=== PATIENT | female | born 1950 | race Two or more races ===

== ENCOUNTER 2025-02-27 15:05 | Emergency (ER) | payer OTHER ==
[~2025-02-27] VITALS: Ht 160 cm; Wt 97.6 kg
[2025-02-27 15:06] VITALS: TEMP 98
--- NOTE | 2025-02-27 16:04 | DVH ---
CLINICAL INDICATION: Cervical radiculopathy TECHNIQUE: 3 radiographic views of the cervical spine were obtained. Comparison: None FINDINGS/IMPRESSION: 7 [id number] cervical type vertebra. Straightening of the cervical lordosis. Vertebral body hei ghts are maintained. No evidence for acute traumatic fractures or spondylolisthesis. Moderate degener ative changes at C5-C6. Otherwise, mild multilevel degenerative changes of the cervical spine. The p revertebral soft tissues unremarkable. Visualized lung apices are clear. If symptoms persist, consider MRI for further evaluation
[2025-02-27 16:07] LABS: Hematocrit 40.0 % (36.0-46.0); Hemoglobin 13.5 g/dL (12.2-16.2); Mean Corpuscular Hemoglobin 28.5 pg (28.0-32.0); Mean Corpuscular Volume 84.4 fL (80.0-100.0); Nucleated Red Blood Cells % 0.1 %
[2025-02-27 16:13] LABS: Chloride 105 mmol/L (98-107); Potassium 4.0 mmol/L (3.5-5.1); Sodium 142 mmol/L (136-145)
[2025-02-27 16:14] LABS: Anion Gap 10 (5-15); Calcium 9.5 mg/dL (8.7-10.4); Carbon Dioxide 27 mmol/L (20-31)
--- NOTE | 2025-02-27 16:15 | DVH ---
Procedure: CT HEAD WITHOUT CONTRAST Study Date and Requested Time: 02/27/2025 03:36 PM History: Weakness Comparison: None Dose: CTDI: 50.46 mGy DLP: 809.0 mGycm Technique: Multiplanar images obtained through the brain without intravenous contrast. Findings: Diffuse brain atrophy. Mild chronic small vessel ischemic changes. No hemorrhages, masses, mass effect, midline shift, herniation or cytotoxic edema following a large v ascular territory. No intra-axial or extra-axial fluid collections. No evidence of hydrocephalus. The basal cisterns are patent. 0.6 cm left caudate head Suggested area of chronic lacunar infarct. The pituitary gland, sella and parasellar regions are unremarkable. The cerebellar tonsils are in nor mal position. Right inferior cerebellar chronic infarct. The cerebellum is unremarkable. Bilateral lens replacement. Otherwise, orbits and globes are unremarkable. The paranasal sinuses and mastoids are clear. There are no worrisome calvarial lesions. Impression: No evidence of acute intracranial abnormality. If symptoms persist, consider MRI for further evaluati on. Right inferior cerebellum and left caudate head suggested areas of chronic infarct.
[2025-02-27 16:19] LABS: BUN/Creatinine Ratio 19.6 (10.0-20.0); Blood Urea Nitrogen 21 mg/dL (9-23); Glucose 96 mg/dL (74-106); Lipase 44 U/L (12-53)
--- NOTE | 2025-02-27 16:21 | ED.PDOC ---
History of Present Illness HPI Comments Patient is a morbidly obese 74-year-old female who presents to the ER with right sided weakness. Patient reports on having three episodes of right-sided weakness for the past two weeks associated with moderately severe right lower extremity pain. Patient came into the ER due from these symptoms but had no symptoms at this time. Denies any other symptoms at this time. Denies chills, fever, N/V/D, SOB, CP. No other associated symptoms, modifiers, recent injuries or sick contacts present at this time. Patient was hypertensive at arrival. Chief Complaint: Right Sided Weakness Time Seen by MD: 16:20 Reviewed Notes: Nurses Notes, Medications, Allergies Allergies: Coded Allergies: Sulfa Antibiotics (Verified Allergy, Unknown, 02/27/25) Information Source: Patient Mode of Arrival: Ambulatory Severity: Moderate Timing: Weeks Duration: Since onset Prehospital treatment: None Past Medical History PAST MEDICAL HISTORY: Denies Surgical History: Denies all surgeries HAIRSPRING VIBRATOR History: No Pertinent HAIRSPRING VIBRATOR History Family History Family History: Reviewed,noncontributory to illness, Unknown Social History Smoker: Non-Smoker Alcohol: Denies ETOH Use Drugs: Denies Drug Use Lives In: Home Constitutional: denies: chills, diaphoresis, fatigue, fever, malaise, sweats, weakness, others EENTM: denies: blurred vision, double vision, ear bleeding, ear discharge, ear drainage, ear pain, ear ringing, eye pain, eye redness, hearing loss, mouth pain, mouth swelling, nasal discharge, nose bleeding, nose congestion, nose pain, photophobia, tearing, throat pain, throat swelling, voice changes, others Respiratory: denies: cough, hemoptysis, orthopnea, SOB at rest, shortness of breath, SOB with excertion, stridor, wheezing, others Cardiovascular: denies: chest pain, dizzy spells, diaphoresis, Dyspnea on exertion, edema, irregular heart beat, left arm pain, lightheadedness, palpitations, PND, syncope, others Gastrointestinal: denies: abdomen distended, abdominal pain, blood streaked bowels, constipated, diarrhea, dysphagia, difficulty swallowing, hematemesis, melena, nausea, poor appetite, poor fluid intake, rectal bleeding, rectal pain, vomiting, others Genitourinary: denies: abnormal vagina bleeding, burning, dyspareunia, dysuria, flank pain, frequency, hematuria, incontinence, pain, , vagina discharge, urgency, others Neurological: reports: right sided weakness; denies: dizziness, fainting, headache, left sided numbness, left sided weakness, numbness, paresthesia, pre- existing deficit, right sided numbness, seizure, speech problems, tingling, tremors, weakness, others Musculoskeletal: denies: back pain, gout, joint pain, joint swelling, muscle pain, muscle stiffness, neck pain, others Integumetry: denies: bruises, change in color, change in hair/nails, dryness, laceration, lesions, lumps, rash, wounds, others Allergic/Immunocompromised: denies: Difficulty Healing, Frequent Infections, Hives, Itching, others Hematologic/Lymphatic: denies: anemia, blood clots, easy bleeding, easy bruising, swollen glands, others Endocrine: denies: excessive hunger, excessive sweating, excessive thirst, excessive urination, flushing, intolerance to cold, intolerance to heat, unexplained weight gain, unexplained weight loss, others Psychiatric: denies: anxiety, bipolar disorder, depression, hopeless, panic disorder, schizophrenia, sleepless, suicidal, others All Other Systems: Reviewed and Negative Physical Exam General Appearance: No Apparent Distress (Patient was in no distress at time of evaluation.), Normal HEENT: Normal ENT Inspection, Pharynx Normal, TMs Normal Neck: Full Range of Motion, Non-Tender, Normal, Normal Inspection Respiratory: Chest Non-Tender, Lungs Clear, No Accessory Muscle Use, No Respiratory Distress, Normal Breath Sounds Cardiovascular: No Edema, No JVD, No Murmur, No Gallop, Normal Peripheral Pulses, Regular Rate/Rhythm Breast Exam: Deferred Gastrointestinal: No Organomegaly, Non Tender, No Pulsatile Mass, Normal Bowel Sounds, Soft Genitalia: Deferred Pelvic: Deferred Rectal: Deferred Extremities: Other (Unremarkable physical evaluation. Patient displayed 5+ over 5+ strength bilaterally. Patient was BEFAST negative. No facial drooping or signs of stroke.) Musculoskeletal : Apperance: Normal Neurologic: Alert, global cmo II-XII nml as Tested, No Motor Deficits, Normal Affect, Normal Mood, No Sensory Deficits Cerebellar Function: NOT DONE Reflexes: NOT DONE Skin: Dry, Normal Color, Warm Lymphatic: No Adenopathy Was a procedure done? Was a procedure done?: No Differential Dx Considerations may include: Sepsis, electrolyte abnormality, cervical radiculopathy, intracranial neoplasm X-Ray, Labs, Meds, VS Vital Signs Date Time Temp Pulse Resp B/P (MAP) Pulse Ox O2 Delivery O2 Flow Rate FiO2 02/27/25 15:29 86 02/27/25 15:23 90 152/79 02/27/25 15:23 93 135/86 02/27/25 15:06 98.0 89 16 150/86 97 98.0 Lab Test 02/27/25 15:55 Range/Units White Blood Count 9.1 4.4-10.8 10^3/uL Red Blood Count 4.74 4.0-5.20 10^6/uL Hemoglobin 13.5 12.2-16.2 g/dL Hematocrit 40.0 36.0-46.0 % Mean Corpuscular Volume 84.4 80.0-100.0 fL Mean Corpuscular Hemoglobin 28.5 28.0-32.0 pg Mean Corpuscular Hemoglobin Concent 33.7 32.0-36.0 g/dL Red Cell Distribution Width 15.8 H 11.8-14.3 % Platelet Count 330 140-450 10^3/uL Mean Platelet Volume 7.8 6.9-10.8 fL Neutrophils (%) (Auto) 43.1 37.0-80.0 % Lymphocytes (%) (Auto) 46.4 10.0-50.0 % Monocytes (%) (Auto) 7.9 0.0-12.0 % Eosinophils (%) (Auto) 1.7 0.0-7.0 % Basophils (%) (Auto) 0.9 0.0-2.0 % Neutrophils # (Auto) 3.9 1.6-8.6 10 ^3/uL Lymphocytes # (Auto) 4.2 0.4-5.4 10 ^3/uL Monocytes # (Auto) 0.7 0-1.3 10 ^3/uL Eosinophils # (Auto) 0.2 0-0.8 10 ^3/uL Basophils # (Auto) 0.1 0-0.2 10 ^3/uL Nucleated Red Blood Cells 0.1 % Sodium Level 142 136-145 mmol/L Potassium Level 4.0 3.5-5.1 mmol/L Chloride Level 105 98-107 mmol/L Carbon Dioxide Level 27 20-31 mmol/L Anion Gap 10 5-15 Blood Urea Nitrogen 21 9-23 mg/dL Creatinine 1.07 H 0.550-1.02 mg/dL Glomerular Filtration Rate Calc 55 >90 mL/min BUN/Creatinine Ratio 19.6 10.0-20.0 Serum Glucose 96 74-106 mg/dL Lactic Acid Level 1.3 0.4-2.0 mmol/L Calcium Level 9.5 8.7-10.4 mg/dL Troponin I High Sensitivity 4 </=34 ng/L B-Type Natriuretic Peptide 50.31 0-100 pg/mL Lipase 44 12-53 U/L X-Ray, Labs, Meds, VS Comment All studies performed the ED were evaluated by me personally. Serum and urine studies were unremarkable for any systemic concerns. CT of the head was unremarkable for any intracranial neoplasm or other concern and cervical spine x-ray revealed some degenerative disc disease which in turn, appears to have led to some neuropathies the patient is experiencing. Advised patient follow up with the primary care provider for continued management. Time of 1ST Reevaluation: 20:03 Reevaluation 1ST: Unchanged Consultation: PCP Patient Education/Counseling: Diagnosis, Treatment, Prognosis Family Education/Counseling: Diagnosis, Treatment, No Family Present SEPSIS Sepsis Screen Date sepsis recognized/suspect: Feb 27, 2025 Time Sepsis recognized/suspect: 1505 Recent Procedure: No On Antibiotic Therapy: No Respiratory Rate >20: No Heart Rate >90: No Temp<36 C (96.8 F) or >38.3 C: No SBP <90 or MAP <65 mmHG: No New Acute Mental Status Change: No Is the patient on CPAP, BIPAP,: No Physician Orders Urinalysis (02/27/25 15:24) Cervical Spine 3v (02/27/25 15:24) Head Without Contrast (02/27/25 15:24) Electrocardigram (02/27/25 15:24) Vital Signs Date Time Temp Pulse Resp B/P (MAP) Pulse Ox O2 Delivery O2 Flow Rate FiO2 02/27/25 15:29 86 02/27/25 15:23 90 152/79 02/27/25 15:23 93 135/86 02/27/25 15:06 98.0 89 16 150/86 97 98.0 Laboratory Tests Test 02/27/25 15:55 Lactic Acid Level 1.3 mmol/L (0.4-2.0) White Blood Count 9.1 10^3/uL (4.4-10.8) Departure 1 Departure Time of Disposition: 20:03 Impression: Primary Impression: Cervical radiculopathy Additional Impression: Weakness Disposition: HOME / SELF CARE / HOMELESS Condition: Stable Additional Instructions: Advised patient utilize medication as needed for symptomatic relief to address any neuropathic concerns. If symptoms continue, patient will need to follow up with the primary care provider for neurologic referral and evaluation. e-Prescriptions Gabapentin (Gabapentin) 300 Mg Cap 1 CAP PO TIDPRN PRN, #20 CAP 0 Refills Prov: JORGE FRIEDMAN PAC 02/27/25 Discharged With: Self, Friend Critical Care Note Critical Care Time?: No Stability Stability form required: No Heart Score Heart Score: Heart Score Response (Comments) Value History N/A 0 EKG N/A 0 Age N/A 0 Risk Factors N/A 0 Troponin N/A 0 Total 0 I personally scribed for JORGE FRIEDMAN PAC ([email or web address]) on 02/27/25 at 16:21. Electronically submitted by Milton Swenson ([email or web address]). JORGE FRIEDMAN PAC Feb 27, 2025 16:21
[2025-02-27] MEDS ORDERED: GABA-1250 PO (20:05)
[2025-02-27 20:57] VITALS: BP 156/86; PULSE 86; RESP 16; O2SAT 95
--- NOTE | 2025-02-28 08:04 | ECG ---
[facility] Test Date: 2025-02-27 Test Time: 15:29:40 Pat Name: PALOMO WHITMAN Department: ED Room: Gender: F Smearer: AM : 1950 Requested By: JORGE FRIEDMAN Order Number: [id number] Reading MD: Dylon Smith Measurements Intervals [place] Rate: 86 P: 54 ME: 171 QRS: 51 QRSD: 110 T: 30 QT: 396 QTc: 474 Interpretive Statements Sinus rhythm Nonspecific T abnormalities, anterior leads Baseline wander in lead(s) III,aVF Electronically Signed On 03-02-2025 18:41:41 PDT by Dylon Smith Please click the below link to view image of tracing.
== END 2025-02-27 20:57 | disposition home or self-care (01) ==
LOC: ER 15:05
DX: M47.22 Other spondylosis with radiculopathy, cervical region (principal); M79.604 Pain in right leg; R53.1 Weakness; I10 Essential (primary) hypertension; Z88.2 Allergy status to sulfonamides
CPT/HCPCS: 36415; 70450; 72040; 80048; 83605; 83690; 83880; 84484; 85025; 93005